=== PATIENT | female | born 1985 | race Caucasian/White ===

== ENCOUNTER 2017-02-02 19:24 | Emergency (ER) | payer OTHER ==
[~2017-02-02] VITALS: Ht 162.6 cm; Wt 61.2 kg
[~2017-02-02 19:24] MED LIST: IBUP-1222 PO; OXYC-302 PO; PNV1TABL11 PO
[2017-02-02 19:25] VITALS: BP 127/76
[2017-02-02] MEDS ORDERED: DEXAMETHASONE 4 MG TABLET PO ONE (20:00)
[2017-02-02] MEDS ORDERED: DEXAMETHASONE 4 MG TABLET ONE (21:17)
[2017-02-02] MEDS ORDERED: CEFTRIAXONE 1,000 MG ONE (22:38)
[2017-02-02] MEDS ORDERED: CEFTRIAXONE 1,000 MG IM ONE (23:00)
== END 2017-02-02 22:52 | disposition home or self-care (01) ==
LOC: ED 22:46
DX: J18.1 Lobar pneumonia, unspecified organism (principal)
CPT/HCPCS: 71020; 96372; 99284; J0696

== ENCOUNTER 2019-09-18 13:53 | Emergency (ER) | payer OTHER ==
[~2019-09-18] VITALS: Ht 162.6 cm; Wt 68.0 kg
[2019-09-18] MEDS ORDERED: SODIUM CHLORIDE FLUSH 10ML SYR IVF ONE (15:00)
[2019-09-18 15:26] LABS: BASOPHILS # (AUTO) 0.05 x10^3/uL (0-0.1); BASOPHILS % (AUTO) 1 % (0-1); EOSINOPHILS # (AUTO) 0.09 x10^3/uL (0-0.4); EOSINOPHILS % (AUTO) 1 % (1-7); LYMPHOCYTES # (AUTO) 1.73 x10^3/uL (1-3.4); LYMPHOCYTES % (AUTO) 25 % (22-44); MD NO; MEAN CORPUSCULAR HGB CONC 33.4 g/dL (32.4-35.8); MEAN CORPUSCULAR VOLUME 95.8 fL (80-100); MEAN PLATELET VOLUME 7.9 fL (7.4-10.4); MONOCYTES # (AUTO) 0.37 x10^3/uL (0.2-0.8); MONOCYTES % (AUTO) 5 % (2-9); NEUTROPHILS % (AUTO) 68 % (42-75); PLATELET COUNT 282 x10^3/uL (130-400); RED BLOOD COUNT 4.24 x10^6/uL (3.82-5.3); RED CELL DISTRIBUTION WIDTH 12.2 % (9.6-15.2)
--- NOTE | 2019-09-18 15:33 | NUR ---
NEEDS 20/18G IV FOR CTA
[2019-09-18 15:39] LABS: ALBUMIN 4.1 g/dL (3.4-5.0); ANION GAP 6 mmol/L (5-15); CALCIUM 9.5 mg/dL (8.5-10.1); CHLORIDE 108 mmol/L (98-107)
[2019-09-18 16:28] VITALS: BP 110/43
[2019-09-18] MEDS ORDERED: OMNIPAQUE 350 MG/ML, 100ML BOTTLE ONE (16:42)
[2019-09-18] MEDS ORDERED: ACETAMINOPHEN 500 MG TABLET ONE (16:46)
[2019-09-18] MEDS ORDERED: ACETAMINOPHEN 500 MG TABLET PO ONE (17:00)
== END 2019-09-18 17:27 | disposition home or self-care (01) ==
LOC: ED 17:21
DX: R51 Headache (principal); J32.9 Chronic sinusitis, unspecified; R53.1 Weakness; R20.0 Anesthesia of skin; H53.9 Unspecified visual disturbance
CPT/HCPCS: 36415; 70450; 70496; 70498; 80048; 82040; 85025; 99284; Q9967